=== PATIENT | female | born 1980 | race Caucasian/White ===

== ENCOUNTER 2017-02-21 00:35 | Emergency (ER) | payer OTHER ==
[~2017-02-21] VITALS: Ht 162.6 cm; Wt 49.0 kg
--- NOTE | ~2017-02-21 | CT71 ---
[facility] A Service of [facility] RADIOLOGY TEXT RESULTS PATIENT: DIOGENES MOORE LOCATION: [facility] : 80 UNIT #: [id number] AGE: [address]: Mary Schwartz APRN SEX: F ORDER DR: [id number] [facility] [address] [place], [place] [address] [id number] MR#: [id number] Acc #: [id number] NAME: DIOGENES MOORE : 1980 SEX: F STUDY DATE/TIME: 02/21/2017 04:59 UNIT: [facility] ROOM: STUDY DESCRIPTION: CT Head Wo Contrast Attending Physician: Mary Schwartz A.P.R.N. Ordering Physician: Mary Schwartz A.P.R.N. Primary Care Physician: Tha Bhat M.D. MEDICAL IMAGING REPORT This report is preliminary unless electronic signature is present EXAM Head CT, 02/21 at 04:59 INDICATION Headache and dizziness that started today. History of migraines. COMPARISON 01/01/[address] exam was performed with one or more of the following radiation dose reduction techniques: automatic exposure control, adjustment of mA and/or kV according to patient size, and iterative reconstruction. FINDINGS Axial noncontrast images were obtained from the skull base to the vertex. Ventricular size and configuration are normal. There is no evidence of acute infarct or hemorrhage. There are no extra-axial fluid collections. No mass lesion or mass effect is seen. There are no skull fractures. IMPRESSION Normal noncontrast head CT. Dictated by... Del Bingham Jr., M.D. THIS IS AN ELECTRONICALLY VERIFIED REPORT Del Bingham Jr., M.D. at 02/22/2017 6:05 AM BRAD/jaskaran TD: 02/21/2017 10:28 JOB #: [id number] [facility] A Service of [facility] RADIOLOGY TEXT RESULTS PAT[facility]: [facility]IOGEN[facility] MOORE [id number] [birth year] UNIT #: [id number] AGE: [address]: Mary Schwartz APRN SEX: F ORDER DR: MEDICAL IMAGING REPORT Page 1 of 1 COPY
[~2017-02-21 00:35] MED LIST: TYLENOL #3 PO
[2017-02-21 04:55] LABS: URINE SOURCE CLEAN CATCH
[2017-02-21 05:01] LABS: URINE APPEARANCE CLEAR; URINE BILIRUBIN NEG (NEG); URINE BLOOD NEG (NEG); URINE COLOR YELLOW; URINE GLUCOSE NEG (NEG); URINE KETONE NEG (NEG); URINE LEUKOCYTE ESTERASE 1+ (NEG); URINE NITRATE NEG (NEG); URINE PROTEIN NEG (NEG); URINE SPECIFIC GRAVITY 1.015 (1.003-1.035)
[2017-02-21 05:05] LABS: CULTURE INDICATED? YES; URBCS1 AUWI 0-2 /[HPF] (0-2); URINE BACTERIA AUWI NEG (NEGATIVE); URINE SQUAMOUS EPITHELIAL CELL OCC /[HPF]
[2017-02-21 05:11] LABS: AMPHETAMINE POS (NEG); BARBITURATES NEG (NEG); BENZODIAZEPINES NEG (NEG); COCAINE NEG (NEG); MARIJUANA NEG (NEG); OPIATES NEG (NEG); TRICYCLIC ANTIDEPRESSANTS NEG (NEG); U METHADONE NEG (NEG)
== END 2017-02-21 06:20 | disposition home or self-care (01) ==
LOC: CED 00:35
PROVIDERS: Nurse Practitioner
DX: R51 Headache (principal); Z86.73 Personal history of transient ischemic attack (TIA), and cerebral infarction without residual deficits; F17.200 Nicotine dependence, unspecified, uncomplicated
CPT/HCPCS: 70450; 80307; 81003; 84703; 87086; 96360; 99284